=== PATIENT | female | born 2000 | race Caucasian/White ===

== ENCOUNTER 2018-07-25 16:01 | Emergency (ER) | payer BC, OTHER ==
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
--- NOTE | 2018-07-26 14:40 | CR ---
EXAM DATE: 07/25/18 PATIENT'S AGE: 17 Patient: BLESSING MARIE Facility: [place], [place] Site . Site : 1998 Study: XRay Spine Cervical [id number]/[id number] 4:44:51 PM Ordering Physician: Fran Greenberg Final Report: INDICATION : Trauma. TECHNIQUE : Cervical spine. Total of 3 views. IMPRESSION : Normal appearance of vertebral bodies and disc spaces. Prevertebral soft tissues appear normal. Anatomic alignment. No significant osseous fracture or suspicious lesion. Dictated by Shamir Swartz MD @ Jul 25 2018 5:03PM (Electronic Signature) Report Signed by Proxy. CECI
== END 2018-07-25 17:38 | disposition home or self-care (01) ==
LOC: MW.ED 16:01
DX: S13.9XXA Sprain of joints and ligaments of unspecified parts of neck, initial encounter (principal); S16.1XXA Strain of muscle, fascia and tendon at neck level, initial encounter; V49.9XXA Car occupant (driver) (passenger) injured in unspecified traffic accident, initial encounter; W22.11XA Striking against or struck by driver side automobile airbag, initial encounter; Y92.410 Unspecified street and highway as the place of occurrence of the external cause
CPT/HCPCS: 72040; 72040-26; 99284